=== PATIENT | male | born 1980 | race Two or more races ===

== ENCOUNTER 2017-04-22 06:24 | Emergency (ER) | payer MEDICAID ==
[~2017-04-22] VITALS: Ht 172.7 cm; Wt 84.4 kg
[2017-04-22 06:36] VITALS: BP 119/64
== END 2017-04-22 07:11 | disposition home or self-care (01) ==
LOC: ED 06:24
DX: M79.603 Pain in arm, unspecified (principal); G89.29 Other chronic pain; J45.909 Unspecified asthma, uncomplicated; G40.909 Epilepsy, unspecified, not intractable, without status epilepticus; F17.210 Nicotine dependence, cigarettes, uncomplicated
CPT/HCPCS: 99406